=== PATIENT | female | born 1990 | race Caucasian/White ===

== ENCOUNTER 2019-04-23 11:05 | Outpatient (CLI) | payer SELFPAY ==
[~2019-04-23] VITALS: Ht 157.5 cm; Wt 70.7 kg
[2019-04-23 11:20] VITALS: BP 99/71; PULSE 98; Ht 157.5 cm; Wt 70.7 kg
[2019-04-23] MEDS ORDERED: PNV11TAB PO (11:22)
--- NOTE | 2019-04-23 13:38 | TRIAGE ---
OB Triage Datetime Report Generated by CPN: 04/23/2019 13:37 Datetime: 04/23/2019 12:31 Stage of : OB Triage Datetime: 04/23/2019 12:18 Labor Evaluation Frequency: 0 Monitor Mode: External Pattern: Normal: <= 5 Contractions in 10 Minutes Resting Tone Calcium: Relaxed Comments: REMOVED DUE TO GESTATIONAL AGE Pain Assessment Pain Scale: 0 Pain Presence: None/Denies Pain Type: N/A Pain Goal: 3 Pain Relief Measures: Comfort Measures Datetime: 04/23/2019 11:28 Stage of : OB Triage Datetime: 04/23/2019 11:14 Stage of : OB Triage Assessment Type: Triage Maternal Assessment Level of Consciousness: Fully Conscious DTR's/Clonus: DTRs 2+; No Clonus Headache: Denies Blurred Vision: No Respiratory Effort: Unlabored; Regular Rhythm; Equal Expansion Breath Sounds, Left: Clear and Equal Breath Sounds, Right: Clear and Equal Nausea/Vomiting: Denies RUQ Epigastric Pain: Denies Facial Edema: None Temperature Route: Axillary Fall Risk Assessment History of Falling: (0) No Secondary Diagnosis: (0) No Ambulatory Aid: (0) Bedrest/Nurse Assist IV Therapy: (0) No Gait: (0) Normal/Bedrest/Immobile Mental Status: (0) Oriented to Own Ability Fall Score: 0 Fall Risk Score Definition: No Risk: No action required Labor Evaluation Frequency: 0 Monitor Mode: External Pattern: Normal: <= 5 Contractions in 10 Minutes Resting Tone Calcium: Relaxed Heart Rate FHR Baseline Rate: 145 Monitor Mode: External US Variability: Moderate 6-25 bpm Decelerations: None Pain Assessment Pain Scale: 7 Pain Presence: Intermittent Pain Type: Cramping Pain Goal: 3 Pain Relief Measures: Comfort Measures Datetime: 04/23/2019 11:13 Time of Arrival: 04/23/2019 10:50 EGA: 21.6 Arrived By: Ambulatory Arrived From: Home Chief Complaint: C/O DFM X 1 DAY Movement: Decreased Contractions: Denies/Absent Rupture of Membranes: Denies Vaginal Bleeding: None Vaginal Discharge: Denies Recent Sexual Intercouse: Denies Abdominal Trauma: Not Applicable Patient Complaints: Cramping Time Provider Notified: 04/23/2019 11:25 Provider Notified: MAURI Initial Plan: MONITOR, EFW ELISSA, CL U/A
--- NOTE | 2019-04-23 17:32 | PN ---
Triage Information Date/Time April 23, 2019 Reason for visit: Uterine contractions Weeks of Gestation 21 weeks and 6 days /Para 1 para 0 Diabetes: none Hypertention: none Additional information 20-year-old G1, P0 with IUP 21 weeks and 6 days presents with complaint of cramping and decreased movement. She denies any leaking of fluid or vaginal bleeding. Objective Vital Signs Date Temp Pulse Resp B/P (MAP) Pulse Ox O2 O2 Flow FiO2 Time Delivery Rate 04/23/19 97.9 98 99/71 (80) 11:20 Heart Rate: 130's Heart Rate Comments Appropriate for gestational age Contractions: >10 Minutes Apart Exam Appearance: Alert and oriented x4 does not appear to be in any acute distress Abdomen: Soft, gravid, fundal height consider gestational age Symptoms resolved after hydration Patient felt movement when she had cold gel on her abdomen. Estimated weight 444 g. Cervical length: 3.6 Estimated weight 36.3 percentile Results/Medications Results 24 hrs Laboratory Tests Test 04/23/19 12:30 Urine Color YELLOW Urine Clarity CLEAR Urine pH 9.0 Urine Specific [place] 1.004 Urine Ketones NEGATIVE Urine Nitrite NEGATIVE Urine Bilirubin NEGATIVE Urine Urobilinogen NEGATIVE Urine Leukocyte Esterase NEGATIVE Urine Hemoglobin NEGATIVE Urine Glucose NEGATIVE Urine Total Protein NEGATIVE PROCEDURE: US OB. CLINICAL INDICATION: labor TECHNIQUE: Multiple sonographic images of the pelvis were obtained. The images were reviewed on a PACS workstation. COMPARISON: No prior studies are available for comparison. FINDINGS: The cervix is closed with a length of 3.57 cm. There is a single viable intrauterine gestation. Cardiac activity is present with 138 beats per minute. There is a breech presentation. Measurements were made in order to determine age. The results are as follows: BPD = 5.47 cm 22 weeks 5 days HC = 20.10 cm 22 weeks 2 days AC = 17.57 cm 22 weeks 3 days FL = 3.36 cm 20 weeks 4 days. Estimated gestational age of approximately 22 weeks 0 days. The estimated date of delivery is 08/27/2019. The EFW = 444.85 g 36.3% . The placenta is anterior grade 1. There is no evidence for an abruption or placenta previa. There is a normal amount of amniotic fluid with an MVP = 6.0 cm. IMPRESSION: Single viable intrauterine gestation of approximately 22 weeks 0 days. The estimated date of delivery is 08/27/2019 Breech position Cervix is closed measuring 3.6 cm . Disposition: Discharge Assessment/Plan 21 weeks and 6 days Cramps, likely due to dehydration Resolved after hydration Patient had been feeling movements after hydration and after cold gel was applied over the abdomen Patient was a stable for discharge Advised about adequate hydration labor precautions discussed with patient Follow-up in 48 hours after discharge from the hospital with primary OB office discussed Return to triage as needed any of above symptoms OANH DOTSON MD April 23, 2019 17:32
== END 2019-04-23 12:40 | disposition home or self-care (01) ==
LOC: OBT 11:05 → L-D 11:07 → OBT 12:40
PROVIDERS: ATTEND Obstetrics & Gynecology Obstetrics
DX: O62.9 Abnormality of forces of labor, unspecified (principal); Z3A.21 21 weeks gestation of pregnancy
CPT/HCPCS: 76815; 76817; 81003; 87086; G0463

== ENCOUNTER 2019-07-21 10:32 | Outpatient (CLI) | payer OTHER ==
[~2019-07-21] VITALS: Ht 157.5 cm; Wt 79.3 kg
[~2019-07-21 10:32] MED LIST: PNV11TAB PO
[2019-07-21 10:46] VITALS: Ht 157.5 cm; Wt 79.3 kg
== END 2019-07-21 12:02 | disposition home or self-care (01) ==
LOC: OBT 10:32 → L-D 10:33 → OBT 12:02
PROVIDERS: ATTEND Obstetrics & Gynecology
DX: O36.8120 Decreased fetal movements, second trimester, not applicable or unspecified (principal); Z3A.24 24 weeks gestation of pregnancy
CPT/HCPCS: 76818; Z7500; G0463

== ENCOUNTER 2019-08-11 23:36 | Outpatient (CLI) | payer OTHER ==
[~2019-08-11] VITALS: Ht 157.5 cm; Wt 82.7 kg
[~2019-08-11 23:36] MED LIST changes: +CLIN300C10 PO; +CLIN60LO7 TOP; +IBUP-1542 PO
[2019-08-11 23:52] VITALS: BP 113/70; PULSE 80; RESP 18; Ht 157.5 cm; Wt 82.7 kg
== END 2019-08-12 02:05 | disposition home or self-care (01) ==
LOC: OBT 23:36 → L-D 23:38 → OBT 08-12 02:05
PROVIDERS: ATTEND Obstetrics & Gynecology Gynecology
DX: O36.8130 Decreased fetal movements, third trimester, not applicable or unspecified (principal); Z3A.37 37 weeks gestation of pregnancy
CPT/HCPCS: 76818; Z7500; G0463

== ENCOUNTER 2019-09-13 11:32 | Emergency (ER) | payer OTHER ==
[~2019-09-13] VITALS: Ht 157.5 cm; Wt 73.1 kg
[2019-09-13 11:39] VITALS: BP 111/62; PULSE 104; RESP 16; Ht 157.5 cm; Wt 73.1 kg
== END 2019-09-13 14:33 | disposition left against medical advice (07) ==
LOC: FTE 11:32
DX: L73.2 Hidradenitis suppurativa (principal)
CPT/HCPCS: 99283